=== PATIENT | female | born 2000 ===

== ENCOUNTER 2019-09-14 14:02 | Emergency (ER) | payer SELFPAY ==
[2019-09-14 14:03] VITALS: BP 126/85; PULSE 104; RESP 12; TEMP 36.6; O2SAT 99; BMI 24.0
== END 2019-09-14 15:13 | disposition left against medical advice (07) ==
LOC: ED 14:59
PROVIDERS: Emergency Provider Emergency Medicine
DX: R69 Illness, unspecified (principal); Z53.21 Procedure and treatment not carried out due to patient leaving prior to being seen by health care provider